=== PATIENT | male | born 1950 | race African-American/Black ===

== ENCOUNTER 2019-01-31 13:41 | Emergency (ER) | payer OTHER, MEDICARE ==
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
[2019-01-31 15:50] VITALS: BP 126/61
== END 2019-01-31 15:50 | disposition home or self-care (01) ==
LOC: ER 13:41
DX: Z04.1 Encounter for examination and observation following transport accident (principal)
CPT/HCPCS: 99282

== ENCOUNTER 2019-07-20 17:27 | Emergency (ER) | payer MEDICARE, OTHER ==
--- NOTE | 2019-07-20 17:50 | ER Document Report ---
ED Medical Screen (RME) - General Chief Complaint: Chest Pain Stated Complaint: BURNING FEELING IN CHEST TODAY Time Seen by Provider: 07/20/19 17:49 Primary Care Provider: SCAR WARREN MD [Primary Care Provider] - Follow up as needed Mode of Arrival: Ambulatory Information source: Patient Notes: 68-year-old male presented to ED for complaint of burning in his chest. He states he did not have any shortness of breath. He states he was out walking in his neighborhood when his chest started burning. He states this is the third time it is done this and he became concerned and came to the emergency room. He does have a history of high blood pressure cholesterol and diabetes. He states he does not smoke drink or use any drugs. He is alert oriented respirations regular nonlabored speaking in full sentences. States he is allergic to aspirin. I have greeted and performed a rapid initial assessment of this patient. A comprehensive ED assessment and evaluation of the patient, analysis of test results and completion of medical decision making process will be conducted by an additional ED providers. TRAVEL OUTSIDE OF THE [place] IN LAST 30 DAYS: No - Related Data Allergies/Adverse Reactions: aspirin Allergy (Verified 07/20/19 17:45) Physical Exam - Vital signs Vitals: Temp Pulse Resp BP Pulse Ox 98.6 F 83 18 150/70 H 97 07/20/19 17:42 07/20/19 17:42 07/20/19 17:42 07/20/19 17:42 07/20/19 17:42 Course - Vital Signs Vital signs: Temp Pulse Resp BP Pulse Ox 98.6 F 83 18 150/70 H 97 07/20/19 17:42 07/20/19 17:42 07/20/19 17:42 07/20/19 17:42 07/20/19 17:42 Doctor's Discharge - Discharge Referrals: SCAR WARREN MD [Primary Care Provider] - Follow up as needed
--- NOTE | 2019-07-20 18:23 | RADIOLOGY REPORT (SQ) ---
EXAM DESCRIPTION: CHEST 2 VIEWS IMAGES COMPLETED DATE/TIME: 07/20/2019 5:04 pm REASON FOR STUDY: Chest pain COMPARISON: None. EXAM PARAMETERS: NUMBER OF VIEWS: two views TECHNIQUE: Digital Frontal and Lateral radiographic views of the chest acquired. RADIATION DOSE: NA LIMITATIONS: none FINDINGS: LUNGS AND PLEURA: No opacities, masses or pneumothorax. No pleural effusion. MEDIASTINUM AND HILAR STRUCTURES: No masses or contour abnormalities. HEART AND VASCULAR STRUCTURES: Heart normal size. No evidence for failure. BONES: No acute findings. HARDWARE: None in the chest. OTHER: No other significant finding. IMPRESSION: NO ACUTE RADIOGRAPHIC FINDING IN THE CHEST. TECHNICAL DOCUMENTATION: JOB ID: [id number] 2010 [employer]- All Rights Reserved Reading location - IP/workstation name: [email or web address]
[2019-07-20 18:24] LABS: ABSOLUTE EOSINOPHILS # (AUTO) 0.1 10^3/uL (0.0-0.6); ABSOLUTE MONOCYTES (AUTO) 0.7 10^3/uL (0.1-1.4); ABSOLUTE NEUT (AUTO) 4.4 10^3/uL (1.7-8.2); BASOPHILS % (AUTO) 0.3 % (0-2); EOSINOPHILS % (AUTO) 1.1 % (0-6); HEMATOCRIT 37.3 % (37.9-51.0); HEMOGLOBIN 12.7 g/dL (13.5-17.0); LYMPHOCYTES % (AUTO) 27.7 % (13-45); MEAN CORPUSCULAR HEMOGLOBIN 32.3 pg (27.0-33.4); MEAN CORPUSCULAR VOLUME 95 fl (80-97); MONOCYTES % (AUTO) 10.1 % (3-13); PLATELET COUNT 194 10^3/uL (150-450); RED BLOOD COUNT 3.92 10^6/uL (4.35-5.55); RED CELL DISTRIBUTION WIDTH 14.2 % (11.5-14.0); SEGMENTED NEUTROPHILS % (AUTO) 60.8 % (42-78); TOTAL CELLS COUNTED % (AUTO) 100 %; WHITE BLOOD COUNT 7.3 10^3/uL (4.0-10.5)
--- NOTE | 2019-07-20 18:33 | ER Document Report ---
ED Cardiac - General Mode of Arrival: Ambulatory Information source: Patient TRAVEL OUTSIDE OF THE [place] IN LAST 30 DAYS: No - HPI Patient complains to provider of: Chest pain Chest pain location: Substernal Quality of pain: Burning Severity now: Moderate Pain level currently: Denies Cardiac risk factors: Diabetes, Hypertension. denies: Smoker, + Family history Positive cardiac history: No Associated symptoms: denies: Diaphoresis, Dizziness, Headache, Shortness of breath, Weakness Exacerbated by: Activity Relieved by: Rest Similar symptoms previously: Yes Recently seen / treated by doctor: No <DEMARCO CONTRERAS - Last Filed: 07/20/19 20:13> <CAMERON RAMOS - Last Filed: 07/20/19 22:13> - General Chief Complaint: Chest Pain Stated Complaint: BURNING FEELING IN CHEST TODAY Time Seen by Provider: 07/20/19 17:49 Primary Care Provider: CHATA TIMMONS MD [ACTIVE STAFF] - Follow up tomorrow Notes: Patient states that he was walking around 5 PM today and developed a burning pain in his chest. Patient states that pain symptoms only lasted for a few minutes. Patient presently without any pain symptoms. Patient states that he had a similar episode about 2 weeks ago that he was never seen after it occurred. Patient states that when he did have the pain symptoms it did make him somewhat anxious. Patient denies any cough cold symptoms or shortness of breath. Patient denies any previous history of DVT or PE. Patient denies any lightheadedness or dizziness. No nausea or vomiting. Patient reports a previous history of hypertension and diabetes and is compliant with his usual nh dications. 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 denies: Fever, Recent illness EENT: No symptoms reported Cardiovascular: Chest pain. denies: Syncope, Dizziness, Lightheaded Respiratory: No symptoms reported. denies: Cough, Short of breath Gastrointestinal: No symptoms reported. denies: Abdominal pain, Diarrhea, Vomiting Genitourinary: No symptoms reported Male Genitourinary: No symptoms reported Musculoskeletal: No symptoms reported. denies: Back pain, Leg swelling Skin: No symptoms reported Hematologic/Lymphatic: No symptoms reported Neurological/Psychological: No symptoms reported <BENWILLIAMJUAN JSHARON - Last Filed: 07/20/19 20:13> Physical Exam - General General appearance: Appears well, Alert In distress: None - HEENT Head: Normocephalic, Atraumatic Eyes: Normal Conjunctiva: Normal Nasal: Normal Mouth/Lips: Normal Mucous membranes: Normal Neck: Normal, Supple. No: Lymphadenopathy - Respiratory Respiratory status: No respiratory distress Chest status: Nontender Breath sounds: Normal. No: Rales, Rhonchi, Stridor, Wheezing Chest palpation: Normal - Cardiovascular Rhythm: Regular Heart sounds: S1 appreciated, S2 appreciated Murmur: No - Abdominal Inspection: Normal Distension: No distension Bowel sounds: Normal Tenderness: Nontender Organomegaly: No organomegaly - Back Back: Normal, Nontender. No: CVA tenderness - Extremities General upper extremity: Normal inspection, Normal strength General lower extremity: Normal inspection, Normal strength - Neurological Neuro grossly intact: Yes Cognition: Normal [place] Coma Scale Eye Opening: Spontaneous [place] Coma Scale Verbal: Oriented [place] Coma Scale Motor: Obeys Commands [place] Coma Scale Total: 15 - Psychological Associated symptoms: Normal affect, Normal mood - Skin Skin Temperature: Warm Skin Moisture: Dry Skin Color: Normal <BENWILLIAMJUAN JSHARON - Last Filed: 07/20/19 20:13> - Vital signs Vitals: Temp Pulse Resp BP Pulse Ox 98.6 F 83 18 150/70 H 97 07/20/19 17:42 07/20/19 17:42 07/20/19 17:42 07/20/19 17:42 07/20/19 17:42 Course - Laboratory Result Diagrams: 07/20/19 18:08 07/20/19 18:08 <BENWILLIAMJUAN JSHARON - Last Filed: 07/20/19 20:13> - Laboratory Result Diagrams: 07/20/19 18:08 07/20/19 18:08 <CAMERON RAMOS - Last Filed: 07/20/19 22:13> - Re-evaluation Re-evalutation: 07/20/19 20:13 Report and handoff given to ERNESTO Neves (DEMARCO CONTRERAS) 07/20/19 22:12 Troponin cycled and negative. I had a long conversation with patient and family members asked me questions over the phone. Recommendation was because of patient's heart score (age, diabetes, hypertension, family history) along with his chest pain that resolved with rest that he be admitted to the hospital for telemetry observation and cardiac rule out. However patient states that he is concerned about being admitted to the hospital during the pandemic, he is requesting a referral and close follow-up with cardiology outpatient instead. He states that he will call and follow-up with Dr. Timmons tomorrow and be seen within 2 days as recommended. He states he will return if he develops any return or worsening symptoms, he currently has no symptoms. Because patient is cooperating with close follow-up instructions patient will be discharged with this plan with return precautions. Patient states appreciation and agreement. Stable, asymptomatic, well-appearing at time of discharge. (CAMERON RAMOS) - Vital Signs Vital signs: Temp Pulse Resp BP Pulse Ox 98.6 F 83 16 128/79 H 100 07/20/19 17:45 07/20/19 17:42 07/20/19 20:01 07/20/19 20:00 07/20/19 20:01 - Laboratory Laboratory results interpreted by me: 07/20/19 07/20/19 18:08 18:08 RBC 3.92 L Hgb 12.7 L Hct 37.3 L RDW 14.2 H Sodium 134.1 L BUN 42 H Creatinine 1.55 H Est GFR ( Amer) 54 L Est GFR (MDRD) Non-Af 45 L Glucose 201 H Discharge <DEMARCO CONTRERAS - Last Filed: 07/20/19 20:13> <CAMERON RAMOS - Last Filed: 07/20/19 22:13> - Discharge Clinical Impression: Chest pain of uncertain etiology Chest pain Qualifiers: Chest pain type: unspecified Qualified Code(s): R07.9 - Chest pain, unspecified Condition: Stable Disposition: HOME, SELF-CARE Additional Instructions: Your work-up tonight does show slightly elevated kidney functions and you were treated with IV fluids for this, otherwise your work-up is reassuring. You have elected to follow-up with the director of physical education closely in the office instead of admission today. Please call the listed cardiology referral (Dr. Timmons) in the morning to schedule your close follow-up for additional management. Return if you worsen including returned/worsening pain, difficulty breathing, passing out, vomiting, fever. Referrals: CHATA TIMMONS MD [ACTIVE STAFF] - Follow up tomorrow
[2019-07-20 18:39] LABS: ALBUMIN 4.5 g/dL (3.5-5.0); ALKALINE PHOSPHATASE 66 U/L (38-126); ANION GAP 8 (5-19); ASPARTATE AMINO TRANSFERASE 40 U/L (17-59); BILIRUBIN,TOTAL 0.4 mg/dL (0.2-1.3); BLOOD UREA NITROGEN 42 mg/dL (7-20); CALCIUM 9.5 mg/dL (8.4-10.2); CARBON DIOXIDE 27 mmol/L (22-30); CHLORIDE 99 mmol/L (98-107); GLUCOSE 201 mg/dL (75-110); POTASSIUM 4.6 mmol/L (3.6-5.0); TOTAL PROTEIN 7.8 g/dL (6.3-8.2)
[2019-07-20] MEDS ORDERED: NORMAL SALINE 1000 ML 1,000 ML IV ONE (18:47)
[2019-07-20 23:05] VITALS: BP 129/73
--- NOTE | 2019-07-21 07:20 | EKG REPORT ---
SEVERITY:- BORDERLINE ECG - SINUS RHYTHM PROBABLE LEFT ATRIAL ABNORMALITY BORDERLINE T ABNORMALITIES, INFERIOR LEADS : Confirmed by: Fransisco Mckeon MD 21-Jul-2019 07:20:07
== END 2019-07-20 23:05 | disposition home or self-care (01) ==
LOC: ER 17:27
DX: R07.9 Chest pain, unspecified (principal); I10 Essential (primary) hypertension; E11.9 Type 2 diabetes mellitus without complications; Z88.8 Allergy status to other drugs, medicaments and biological substances
CPT/HCPCS: 93005; 99285; 96360; 36415; 85025; 80053; 84484; 71046; 93010; J7030

== ENCOUNTER → 2019-08-04 | Outpatient (CLI) | payer MEDICARE ==
--- NOTE | 2019-08-05 13:45 | DRAGON STRESS TEST REPORT ---
Exercise nuclear stress test Date: 08/03/2019 Referring physician: [facility] Performing physician: Brayden Patel MD Indication: Chest pain Clinical history 68-year-old male with systemic hypertension, diabetes mellitus and dyslipidemia presented to the office with complaints of chest pain. He had presented to [facility] on 07/20/2019. Work-up there was inconclusive. Based on his risk factors and symptoms we decided to proceed with exercise nuclear stress test. Procedure The patient presented to the stress lab. Initially, rest images were obtained according to standard protocol after the injection of 14.57 millicurie technetium 99m sestamibi. Subsequently the patient underwent exercise nuclear stress test according to Artur protocol. The patient exercised on the treadmill according to Artur protocol for a total of 3 minutes and 8 seconds achieving a maximum heart rate of 129 bpm which was 84% of maximum predicted of 152 bpm. His maximum workload was 4.6 METS. The presenting EKG showed sinus rhythm at 96 bpm. The initial blood pressure was 186/65 mmHg. At 2 minutes and 50 seconds in the first stage of Artur protocol, the patient developed mild chest discomfort. There was global ST depression as well as ST elevation in aVR noted at this time. The treadmill stress test was aborted promptly based on this. Just prior to cessation of exercise, patient was injected with 43.9 millicuries of technetium 99m sestamibi. The recovery EKG had evidence of myocardial ischemia with ST depression in multiple leads and ST elevation in aVR which gradually resolved and became normal at about 5 minutes and 30 seconds. The peak heart rate was 129 bpm. The maximum blood pressure was 186/65 mmHg. The test was terminated on account of exercise EKG positive for ischemia as well as chest discomfort. The patient's EKG and vital signs were monitored throughout the procedure. After a period of rest, stress images were obtained according to standard protocol. Raw as well as processed rest and stress images were reviewed. There was mild gut uptake which did not interfere with the study. There is medium sized moderately intense reversible perfusion defect in the inferior and lateral segments. There is moderate to severe inferior and inferolateral hypokinesis. The TID ratio is 1.23. Conclusion The exercise EKG is positive for myocardial ischemia. There is evidence of myocardial ischemia in the RCA/left circumflex distribution. Unable to assess effort tolerance due to the test being terminated prematurely. Abnormal heart rate and blood pressure response to exercise. There is moderate to severe inferior and inferolateral hypokinesis. Gated left ventricular ejection fraction is estimated at 57 %. Arrangements are being made to pursue cardiac catheterization on 08/06/2019 at [place], [place] after discussion with patient in lab. HORACED
== END ==
LOC: RAD 05:58
PROVIDERS: ATTEND Internal Medicine
DX: I20.8 Other forms of angina pectoris (principal)
CPT/HCPCS: 93306; 93017; 78452; A9500; Q9969